=== PATIENT | female | born 1950 | race Caucasian/White ===

== ENCOUNTER 2017-07-03 16:12 | Emergency (ER) | payer MEDICARE ==
[~2017-07-03] VITALS: Ht 167.6 cm; Wt 109.0 kg
[~2017-07-03 16:12] MED LIST: ALBU8I INH; BUTA1CAP PO; CETI10 PO; DUONI NEB; HYDR-2768 PO; LISI-357 PO; METF850T PO; MONT10TA2 PO; RANI150 PO; SYNT300T PO; TIOT18I INH; VICOTAB4 PO
[2017-07-03 16:17] VITALS: BP 182/83; PULSE 124; RESP 22; TEMP 97.9; O2SAT 94
--- NOTE | 2017-07-03 16:31 | PD ---
Physical Exam Date Seen by Provider: Jul 03, 2017 Time Seen by Provider: 16:25 Narrative 67-year-old female presents the emergency department with sudden onset weakness, diaphoresis, and mild chest tightness. Started just about a minutes ago prior to arrival. He shouldn't hesitate to diabetic and she checked her sugar which was 130. She checked her O2 sat which was shown to be 96% but her heart rate was 150. She took her own pulse and found it to be somewhat irregular. She has no history of this in the past. Recently she had a stress test, her outpatient clerk is at [facility]. Patient has history of asthma. Patient's pain is 2 out of 10 currently. She is allergic to penicillin. Data Data Last Documented VS Vital Signs Date Time Temp Pulse Resp B/P (MAP) Pulse Ox O2 Delivery O2 Flow Rate FiO2 07/03/17 16:17 97.9 124 22 182/83 (116) 94 MDM Medical Record Reviewed: Yes Supervised Visit with LUDMILA: Yes Narrative Course Vital signs are stable. Protocols ordered Patient is awaiting placement Condition: Stable Warner Traylor Jul 03, 2017 16:31
--- NOTE | 2017-07-03 17:25 | RADRPT ---
EXAM DATE/TIME: 07/03/2017 16:57 [facility] COMPARISON: CHEST SINGLE AP, September 28, 2013, 13:55. INDICATIONS : Chest pain and short of breath. MEDICAL HISTORY : None. SURGICAL HISTORY : None. ENCOUNTER: Initial ACUITY: 1 day PAIN SCORE: 3/10 LOCATION: Bilateral chest FINDINGS: A single view of the chest demonstrates the lungs to be symmetrically aerated without evidence of mas s, infiltrate or effusion. The heart is normal size. Mild tortuosity descending thoracic aorta.. O sseous structures are intact. CONCLUSION: The lungs are clear. Abraham Appiah MD on July 03, 2017 at 17:23 Board Certified Radiologist. This report was verified electronically.
[2017-07-03 17:46] LABS: AUTOMATED NEUTROPHIL # 11.2 TH/MM3 (1.8-7.7); BASOPHIL # 0.1 TH/MM3 (0-0.2); BASOPHIL % 0.5 % (0.0-2.0); EOSINOPHIL # 0.2 TH/MM3 (0-0.4); EOSINOPHIL % 1.1 % (0.0-4.0); HEMATOCRIT 42.8 % (35.0-46.0); LYMPH % 32.9 % (9.0-44.0); LYMPHOCYTE # 6.4 TH/MM3 (1.0-4.8); MEAN CELL VOLUME 80.9 FL (80.0-100.0); MEAN CORPUSCULAR HEMOGLOBIN 27.1 PG (27.0-34.0); MEAN CORPUSCULAR HGB CONC 33.5 % (32.0-36.0); NEUT % 57.5 % (16.0-70.0); PLATELET COUNT 453 TH/MM3 (150-450); RED BLOOD COUNT 5.29 MIL/MM3 (4.00-5.30); RED CELL DISTRIBUTION WIDTH 17.1 % (11.6-17.2); WHITE BLOOD COUNT 19.5 TH/MM3 (4.0-11.0)
[2017-07-03 18:05] LABS: HEMO FLAGS AUTO DIFF
[2017-07-03 18:07] LABS: APTT (PATIENT) 25.2 SEC (24.3-30.1); PROTHROMBIN TIME - PATIENT 11.3 SEC (9.8-11.6)
--- NOTE | 2017-07-03 18:08 | PD ---
HPI Chief Complaint: Respiratory Symptoms Time Seen by Provider: 17:46 Travel History International Travel<30 days: No Contact w/Intl Traveler<30days: No Traveled to known affect area: No History of Present Illness HPI PATIENT WAS SHOPPING AT [employer] WHEN SHE STARTED TO DEVELOP CHEST TIGHTNESS, WITH HEAVY DIAPHORESIS (PT STATES DRENCHED WITH SWEAT), WEAKNESS AND PALPITATIONS. PATIENT HAD A PORTABLE PULSE OX DEVICE WHICH SHOWED THAT HER PULSE OX WAS NORMAL BUT HER HEART RATE WAS 130-150'S PCP IS DR LEMUS CARDIO: DR ABARCA PMHX: ASTHMA, MIGRAINE, HTN, BORDERLINE DM, PEACE THYROIDITIS NOW ON SYNTHROID PFSH Past Medical History Asthma: Yes Cardiovascular Problems: Yes Diabetes: Yes Hypertension: Yes Migraines: Yes Ulcer: Yes (DUODENAL) : 0 Past Surgical History Gynecologic Surgery: Yes (CERVICAL COLPOSCOPY) Social History Alcohol Use: No Tobacco Use: No Substance Use: No Allergies-Medications (Allergen,Severity, Reaction): Coded Allergies: cephalexin (Verified Allergy, Severe, Anaphylaxis, 07/03/17) penicillin G (Unverified Allergy, Severe, ANAPHYLAXIS, 07/03/17) vancomycin (Verified Allergy, Severe, Anaphylaxis, 07/03/17) Reported Meds & Prescriptions Reported Meds & Active Scripts Active Reported Fioricet 50-300-40 mg (Uqkzqgihri-Hdujekqkcallq-Jzriy) 1 Cap Cap 1 Cap PO Q4 PRN Vicoprofen (Hydrocodone Bitartrate/Ibuprofen) 7.5 Mg/200 Mg Tab 1 Tab PO Q4H PRN FOR PAIN Spiriva 18 Mcg Oral Inh (Tiotropium [place]) 18 Mcg Inhp 18 Mcg INH DAILY Singulair (Montelukast Sodium) 10 Mg Tab 10 Mg PO HS Metformin Hcl (Metformin HCl) 850 Mg Tab 850 Mg PO BID Zantac 150 Mg Tab (Ranitidine HCl) 150 Mg Tab 150 Mg PO BID Cetirizine Hcl 10 Mg Tab 10 Mg PO BID Synthroid (Levothyroxine Sodium) 300 Mcg Tab 300 Mcg PO DAILY Lisinopril 5 Mg Tab 5 Mg PO DAILY Hctz (Hydrochlorothiazide) 25 Mg Tab 25 Mg PO DAILY Ventolin Hfa (Albuterol Sulfate) 8 Gm Aero 1 Puff INH Q4H PRN * SHAKE WELL BEFORE USE * Resp: Albuterol/Ipratropium 2.5 Mg/0.5 Mg (Albuterol/Ipratropium) 1 Amp Nebu 1 Amp NEB Q6H Review of Systems Except as stated in HPI: all other systems reviewed are Neg General / Constitutional: No: Fever Eyes: No: Visual changes HENT: No: Headaches Cardiovascular: Positive: Palpitations, Irregular Rhythm, Tachycardia, Diaphoresis Respiratory: No: Shortness of Breath Gastrointestinal: No: Abdominal Pain Genitourinary: No: Dysuria Musculoskeletal: No: Pain Skin: No Rash Neurologic: No: Weakness Psychiatric: No: Depression Endocrine: No: Polydipsia Hematologic/Lymphatic: No: Easy Bruising Physical Exam Narrative GENERAL: SKIN: Warm and dry. HEAD: Atraumatic. Normocephalic. EYES: Pupils equal and round. No scleral icterus. No injection or drainage. ENT: No nasal bleeding or discharge. Mucous membranes pink and moist. NECK: Trachea midline. No JVD. CARDIOVASCULAR: TACHYCARDIC RATE, WITH Regular Rhythm. RESPIRATORY: No accessory muscle use. Clear to auscultation. Breath sounds equal bilaterally. GASTROINTESTINAL: Abdomen soft, non-tender, nondistended. MUSCULOSKELETAL: Extremities without clubbing, cyanosis, or edema. No obvious deformities. NEUROLOGICAL: Awake and alert. No obvious cranial nerve deficits. Motor grossly within normal limits. Five out of 5 muscle strength in the arms and legs. Normal speech. PSYCHIATRIC: Appropriate mood and affect; insight and judgment normal. Data Data Last Documented VS Vital Signs Date Time Temp Pulse Resp B/P (MAP) Pulse Ox O2 Delivery O2 Flow Rate FiO2 07/03/17 18:05 110 94 Room Air 07/03/17 16:17 97.9 22 182/83 (116) Orders Orders Electrocardiogram (07/03/17 16:31) B-Type Natriuretic Peptide (07/03/17 16:31) Ckmb (Isoenzyme) Profile (07/03/17 16:31) Complete Blood Count With Diff (07/03/17 16:31) Comprehensive Metabolic Panel (07/03/17 16:31) Magnesium (Mg) (07/03/17 16:31) Prothrombin Time / Inr (Pt) (07/03/17 16:31) Act Partial Throm Time (Ptt) (07/03/17 16:31) Troponin I (07/03/17 16:31) Chest, Single Ap (07/03/17 16:31) Thyroid Stimulating Hormone (07/03/17 18:03) D-Dimer (07/03/17 18:11) Al-Mag Hy-Si 40-40-4 Mg/Ml Liq (Mag-Al P (07/03/17 18:15) Lidocaine 2% Viscous (Xylocaine 2% Visco (07/03/17 18:15) Tramadol (Ultram) (07/03/17 18:15) Labs Laboratory Tests Test 07/03/17 17:10 White Blood Count 19.5 TH/MM3 Red Blood Count 5.29 MIL/MM3 Hemoglobin 14.3 GM/DL Hematocrit 42.8 % Mean Corpuscular Volume 80.9 FL Mean Corpuscular Hemoglobin 27.1 PG Mean Corpuscular Hemoglobin Concent 33.5 % Red Cell Distribution Width 17.1 % Platelet Count 453 TH/MM3 Mean Platelet Volume 8.3 FL Neutrophils (%) (Auto) 57.5 % Lymphocytes (%) (Auto) 32.9 % Monocytes (%) (Auto) 8.0 % Eosinophils (%) (Auto) 1.1 % Basophils (%) (Auto) 0.5 % Neutrophils # (Auto) 11.2 TH/MM3 Lymphocytes # (Auto) 6.4 TH/MM3 Monocytes # (Auto) 1.6 TH/MM3 Eosinophils # (Auto) 0.2 TH/MM3 Basophils # (Auto) 0.1 TH/MM3 CBC Comment AUTO DIFF Differential Total Cells Counted 100 Neutrophils % (Manual) 60 % Band Neutrophils % 1 % Lymphocytes % 32 % Monocytes % 7 % Neutrophils # (Manual) 11.9 TH/MM3 Differential Comment FINAL DIFF MANUAL Atypical Lymphocytes % Platelet Estimate HIGH Platelet Morphology Comment NORMAL Prothrombin Time 11.3 SEC Prothromb Time International Ratio 1.0 RATIO Activated Partial Thromboplast Time 25.2 SEC D-Dimer Quantitative (PE/DVT) 0.44 MG/L FEU Blood Urea Nitrogen 16 MG/DL Creatinine 1.05 MG/DL Random Glucose 134 MG/DL Total Protein 7.9 GM/DL Albumin 3.9 GM/DL Calcium Level 10.0 MG/DL Magnesium Level 1.5 MG/DL Alkaline Phosphatase 89 U/L Aspartate Amino Transf (AST/SGOT) 20 U/L Alanine Aminotransferase (ALT/SGPT) 51 U/L Total Bilirubin 0.3 MG/DL Sodium Level 137 MEQ/L Potassium Level 4.0 MEQ/L Chloride Level 103 MEQ/L Carbon Dioxide Level 22.7 MEQ/L Anion Gap 11 MEQ/L Estimat Glomerular Filtration Rate 52 ML/MIN Total Creatine Kinase 42 U/L Troponin I LESS THAN 0.02 NG/ML B-Type Natriuretic Peptide LESS THAN 2 PG/ML Thyroid Stimulating Hormone 3rd Gen 0.010 uIU/ML MDM Medical Decision Making Medical Screen Exam Complete: Yes Emergency Medical Condition: Yes Medical Record Reviewed: Yes Interpretation(s) SINUS TACHY 111, RBBB NO TWAVE INVERSION, NO STEMI PATTERN Differential Diagnosis ANEMIA V DEHYDRATION V PE V Narrative Course EXPLAINED RESULTS TO PAITNET WHERE NEG FOR ANEMIA/DEHYDRATION/ D DIMER NEG, BNP NORMAL, HOWEVER TSH WAS VERY LOW C/W TOO MUCH SYNTHROID ADVISE TO SEE HER PCP FOR FURTHER ADJUSTMENT OF HER SYNTHROID Diagnosis Primary Impression: PALPITATIONS Additional Impression: FICTITIOUS HYPERTHYROIDISM Patient Instructions: General Instructions, Hyperthyroidism (ED) Disposition: 01 DISCHARGE HOME Condition: Stable Cyril Lindsay MD Jul 03, 2017 18:08
[2017-07-03] MEDS ORDERED: LIDOCAINE VISCOUS 2% SOLN 15 ML UDC PO ONE (18:15)
[2017-07-03] MEDS ORDERED: ALUMINUM/MAGNESIUM/SIMETH 30 ML CUP PO ONE (18:15)
[2017-07-03] MEDS ORDERED: traMADol HCL 50 MG TAB PO ONE (18:15)
[2017-07-03 18:26] LABS: ALT (GPT) 51 U/L (10-53); ANION GAP 11 MEQ/L (5-15); AST (GOT) 20 U/L (15-37); BICARBONATE 22.7 MEQ/L (21.0-32.0); BLOOD UREA NITROGEN 16 MG/DL (7-18); CHLORIDE 103 MEQ/L (98-107); GLOMERULAR FILTRATION RATE 52 ML/MIN (>89); MAGNESIUM 1.5 MG/DL (1.5-2.5); SODIUM (NA) 137 MEQ/L (136-145)
[2017-07-03 18:30] LABS: ALKALINE PHOSPHATASE 89 U/L (45-117); TOTAL BILIRUBIN ADULT 0.3 MG/DL (0.2-1.0)
[2017-07-03 18:45] LABS: CREATINE KINASE 42 U/L (26-192)
[2017-07-03 18:56] LABS: BANDS 1 % (0-6); NEUTROPHIL # MANUAL DIFF 11.9 TH/MM3 (1.8-7.7); POLYS (SEG NEUTROPHILS) 60 % (16-70); WBC DIFF SAMPLE 100
[2017-07-03 18:59] LABS: PLATELET MORPHOLOGY NORMAL (NORMAL)
[2017-07-03 19:00] LABS: PLATELET ESTIMATE SMEAR HIGH (NORMAL); SCAN/DIFF FINAL DIFF MANUAL
--- NOTE | 2017-07-03 21:38 | EKG ---
Date Performed: 07/03/2017 Time Performed: 17:05:07 PTAGE: 67 years EKG: SINUS TACHYCARDIA RIGHT BUNDLE BRANCH BLOCK LEFT ANTERIOR FASCICULAR BLOCK ABNORMAL ECG PREVIOUS TRACING : 09/28/2013 13.27 Compared to the previous tracing sinus tachycardia present DOCTOR: Adam Calixto Interpretating Date/Time 07/03/2017 21:36:38
== END 2017-07-03 20:21 | disposition home or self-care (01) ==
LOC: NEPE 16:12
DX: R00.2 Palpitations (principal); I45.10 Unspecified right bundle-branch block; I10 Essential (primary) hypertension; E05.90 Thyrotoxicosis, unspecified without thyrotoxic crisis or storm; J45.909 Unspecified asthma, uncomplicated; E11.9 Type 2 diabetes mellitus without complications
CPT/HCPCS: 71010; 80053; 82550; 83735; 83880; 84443; 84484; 85007; 85027; 85379; 85610; 85730; 93005; 99285